=== PATIENT | female | born 1995 | race Caucasian/White ===

== ENCOUNTER 2016-11-11 15:28 | Emergency (ER) | payer OTHER ==
[~2016-11-11] VITALS: Wt 50.0 kg
--- NOTE | 2016-11-11 15:54 | ERD ---
ER Documentation Chief Complaint Date/Time DATE: 11/11/16 TIME: 15:50 Chief Complaint r. ankle pain s/p trauma HPI Patient is a 21-year-old female presents to the emergency department with right lower leg pain after having her right lower extremity caught between a boulder and [employer] approximately 5 days ago. Patient states she was [place] the [place] when her leg got caught. Patient states she has been icing the affected extremity. Patient reports taking ibuprofen for pain. Patient is able to ambulate without any difficulty. Patient does have some bruising to the lateral aspect of her right lower leg. Patient denies any fevers, chills, nausea, vomiting, head injury or LOC. Patient denies any warmth, swelling or redness to the affected area. Patient denies any previous injuries to the affected extremity. ROS All systems reviewed and are negative except as per history of present illness. Physical Exam Vitals Vital Signs Date Time Temp Pulse Resp B/P Pulse Ox O2 Delivery O2 Flow Rate FiO2 11/11/16 15:31 98.0 70 20 124/65 98 Physical Exam GENERAL: Well-developed, well-nourished female. Appears in no acute distress. Speaking in full sentences. HEAD: Normocephalic, atraumatic. EYES: Pupils are equally reactive bilaterally. EOMs grossly intact. No conjunctival erythema. ENT: Moist mucous membranes. No uvula deviation. No kissing tonsils. NECK: Supple. No meningismus. Normal range of motion of the neck. LUNG: Clear to auscultation bilaterally. No rhonchi, wheezing, rales or coarse breath sounds. HEART: Regular rate and rhythm. No murmurs, rubs or gallops. EXTREMITIES: Equal pulses bilaterally. No peripheral clubbing, cyanosis or edema. No unilateral leg swelling. NEUROLOGIC: Alert and oriented. Moving all four extremities without any difficulty. Normal speech. Steady gait. RIGHT LE: No obvious deformity. Ecchymosis noted to the lateral lower leg. Skin intact. Full ROM of knee, ankles and toes. Tender to palpation of the distal tibia-fibula, medial ankle. Nontender position of the midfoot, fifth metatarsal. Sensation intact to light touch. Neurovascularly intact. (Able to plantarflex, dorsiflex, moris foot, invert foot, raise big toe.) 2+ DP and DT pulses. Results 24 hrs Current Medications Medications (Trade) Dose Ordered Sig/Bruno Route PRN Reason Start Time Stop Time Status Last Admin Dose Admin Ibuprofen (Motrin) 400 mg ONCE ONCE PO 11/11/16 16:00 11/11/16 16:01 DC 11/11/16 15:52 Procedures/MDM ED COURSE: The patient was stable throughout ED course. I kept the patient and/or family informed of laboratory and diagnostic imaging results throughout the ED course. DIAGNOSTIC IMAGING: Read by radiologist. Patient: CORONA ALFARO : 1995 Age: 21 Sex: F MR #: [id number] DOS: 11/11/16 1545 Ordering MD: SHAVON SHORE PA-C Location: [facility] Room/Bed: PROCEDURE: XR Right Ankle. CLINICAL INDICATION: Trauma. Right ankle pain. TECHNIQUE: 3 views. Frontal, lateral, and oblique. COMPARISON: None. FINDINGS: There is no fracture or dislocation. The soft tissues are normal. Articular surfaces are intact. There is no lytic or blastic lesion. There is no radiopaque foreign body. IMPRESSION: 1. Normal images of the right ankle. RPTAT: QQ .Charles Malave MD, MD Date Time Electronically viewed and signed by .Charles Malave MD, MD on 11/11/2016 17:28 .R/ CC: SHAVON SHORE PA-C Patient: CORONA ALFARO : 1995 Age: 21 Sex: F MR #: [id number] DOS: 11/11/16 1545 Ordering MD: SHAVON SHORE PA-C Location: [facility] Room/Bed: PROCEDURE: XR Right Foot. CLINICAL INDICATION: Trauma. Right foot pain. TECHNIQUE: Three views. Frontal, lateral, and oblique. COMPARISON: None. FINDINGS: There is no fracture or dislocation. The soft tissues are normal. Articular surfaces are intact. There is no lytic or blastic lesion. There is no radiopaque foreign body. IMPRESSION: 1. Normal images of the right foot. RPTAT: QQ .Charles Malave MD, MD Date Time Electronically viewed and signed by .Charles Malave MD, MD on 11/11/2016 17:27 .R/ CC: SHAVON SHORE PA-C DIAGNOSTIC IMAGING REPORT Patient: CORONA ALFARO : 1995 Age: 21 Sex: F MR #: [id number] DOS: 11/11/16 1545 Ordering MD: SHAVON SHORE PA-C Location: [facility] Room/Bed: PROCEDURE: XR Right Tibia and Fibula. CLINICAL INDICATION: Trauma. Right lower leg pain. TECHNIQUE: Two views. Frontal and lateral. COMPARISON: No prior studies are available for comparison. FINDINGS: There is no fracture or dislocation. The soft tissues are normal. Articular surfaces are intact. There is no lytic or blastic lesion. There is no radiopaque foreign body. IMPRESSION: 1. Normal images of the right tibia and fibula. RPTAT: QQ .Charles Malave MD, MD Date Time Electronically viewed and signed by .Charles Malave MD, MD on 11/11/2016 17:28 .R/ CC: SHAVON SHORE PA-C MEDICATIONS GIVEN: Ibuprofen Patient tolerated medication well with no adverse reactions. Patient reported improvement in pain. MEDICAL DECISION MAKING: This is a 21-year-old female presents to the ED with right lower extremity pain after getting her foot stuck between a boulder and a jet ski approximately 1 week ago. Vital signs were reviewed. Patient was afebrile. Xray imaging of the right foot, right ankle, right tibia-fibula were all unremarkable. Given these findings, the patient's presentation is most consistent with lower leg contusion and ankle strain. I have a much lower clinical concern for ankle dislocation, ankle fracture, tibia fracture, fibula fracture, tibial plateau fracture, Maisonneuve fracture, foot fracture, osteomyelitis, septic joint, gout , osteoarthritis, DVT, compartment syndrome. At this time, unable to rule out any tendon and ligament injuries. PRESCRIPTIONS: Ibuprofen DISCHARGE: At this time, patient is stable for discharge and outpatient management. Patient was provided with a copy of all imaging studies obtained today. RICE therapy and ROM exercises were advised to avoid stiffness. I have instructed the patient to follow-up with his/her primary care physician in 1-2 days. I have discussed with the patient the possibility of needing to see an clinical nurse specialist for further workup and imaging if the pain persists. I have instructed the patient to promptly return to the ER for any new or worsening symptoms including increased pain, swelling, redness, warmth or fever. The patient and/or family expressed understanding of and agreement with this plan. All questions were answered. Home care instructions were provided. Departure Diagnosis: Primary Impression: Ankle injury Encounter type: initial encounter Laterality: right Qualified Code: S99.911A - Ankle injury, right, initial encounter Condition: Stable Patient Instructions: What Are Ankle Sprains? Referrals: [facility] YOU HAVE RECEIVED A MEDICAL SCREENING EXAM AND THE RESULTS INDICATE THAT YOU DO NOT HAVE A CONDITION THAT REQUIRES URGENT TREATMENT IN THE EMERGENCY DEPARTMENT. FURTHER EVALUATION AND TREATMENT OF YOUR CONDITION CAN WAIT UNTIL YOU ARE SEEN IN YOUR DOCTORS OFFICE WITHIN THE NEXT 1-2 DAYS. IT IS YOUR RESPONSIBILITY TO MAKE AN APPOINTMENT FOR FOLOW-UP CARE. IF YOU HAVE A PRIMARY DOCTOR --you should call your primary doctor and schedule an appointment IF YOU DO NOT HAVE A PRIMARY DOCTOR YOU CAN CALL OUR PHYSICIAN REFERRAL HOTLINE AT IF YOU CAN NOT AFFORD TO SEE A PHYSICIAN YOU CAN CHOSE FROM THE FOLLOWING [facility] [address] [facility] [address] [facility] [facility] [address] [facility] [address] [facility] [address] [facility]. [facility] [address] [facility]. [facility] YOU HAVE RECEIVED A MEDICAL SCREENING EXAM AND THE RESULTS INDICATE THAT YOU DO NOT HAVE A CONDITION THAT REQUIRES URGENT TREATMENT IN THE EMERGENCY DEPARTMENT. FURTHER EVALUATION AND TREATMENT OF YOUR CONDITION CAN WAIT UNTIL YOU ARE SEEN IN YOUR DOCTORS OFFICE WITHIN THE NEXT 1-2 DAYS. IT IS YOUR RESPONSIBILITY TO MAKE AN APPOINTMENT FOR FOLOW-UP CARE. IF YOU HAVE A PRIMARY DOCTOR --you should call your primary doctor and schedule and appointment IF YOU DO NOT HAVE A PRIMARY DOCTOR YOU CAN CALL OUR PHYSICIAN REFERRAL HOTLINE AT . IF YOU CAN NOT AFFORD TO SEE A PHYSICIAN YOU CAN CHOSE FROM THE FOLLOWING [facility] INSTITUTIONS: [facility] [address] [place] [address] [facility] [address] [place] [address] [facility] [address] [place] [address] [facility] Hours: Mon-Fri 9:00 AM - 5:00 PM Additional Instructions: Call your primary care doctor TOMORROW for an appointment during the next 1-2 days.See the doctor sooner or return here if your condition worsens before your appointment time. Able to rule out any ligament or tendon injuries at this time. Patient was advised to follow-up with an clinical nurse specialist and/or primary care physician for referral for an MRI if pain persists. SHAVON SHORE PA-C Nov 11, 2016 15:54
[2016-11-11] MEDS ORDERED: IBUPROFEN 200 MG TAB PO ONE (16:00)
--- NOTE | 2016-11-11 17:28 | RADRPT ---
PROCEDURE: XR Right Foot. CLINICAL INDICATION: Trauma. Right foot pain. TECHNIQUE: Three views. Frontal, lateral, and oblique. COMPARISON: None. FINDINGS: There is no fracture or dislocation. The soft tissues are normal. Articular surfaces are intact. There is no lytic or blastic lesion. There is no radiopaque foreign body. IMPRESSION: 1. Normal images of the right foot. RPTAT: QQ .Charles Malave MD, MD Date Time Electronically viewed and signed by .Charles Malaev MD, on 11/11/2016 17:27 .R/
--- NOTE | 2016-11-11 17:28 | RADRPT ---
PROCEDURE: XR Right Ankle. CLINICAL INDICATION: Trauma. Right ankle pain. TECHNIQUE: 3 views. Frontal, lateral, and oblique. COMPARISON: None. FINDINGS: There is no fracture or dislocation. The soft tissues are normal. Articular surfaces are intact. There is no lytic or blastic lesion. There is no radiopaque foreign body. IMPRESSION: 1. Normal images of the right ankle. RPTAT: QQ .Charles Malave MD, MD Date Time Electronically viewed and signed by .Charles Malave MD, on 11/11/2016 17:28 .R/
--- NOTE | 2016-11-11 17:29 | RADRPT ---
PROCEDURE: XR Right Tibia and Fibula. CLINICAL INDICATION: Trauma. Right lower leg pain. TECHNIQUE: Two views. Frontal and lateral. COMPARISON: No prior studies are available for comparison. FINDINGS: There is no fracture or dislocation. The soft tissues are normal. Articular surfaces are intact. There is no lytic or blastic lesion. There is no radiopaque foreign body. IMPRESSION: 1. Normal images of the right tibia and fibula. RPTAT: QQ .Charles Malave MD, MD Date Time Electronically viewed and signed by .Charles Malave MD, MD on 11/11/2016 17:28 .R/
[2016-11-11] MEDS ORDERED: IBUP-1542 PO (17:46)
[2016-11-11 18:05] VITALS: BP 118/69; PULSE 78; RESP 20; TEMP 98.2
== END 2016-11-11 18:06 | disposition home or self-care (01) ==
LOC: FTE 15:28
DX: S99.911A Unspecified injury of right ankle, initial encounter (principal); W23.0XXA Caught, crushed, jammed, or pinched between moving objects, initial encounter; Y92.828 Other wilderness area as the place of occurrence of the external cause
CPT/HCPCS: 73590; 73610; 73630; Z7610